=== PATIENT | female | born 1935 | race Caucasian/White ===

== ENCOUNTER 2017-11-25 18:36 | Emergency (ER) | payer MEDICARE, OTHER ==
[2017-11-25] MEDS ORDERED: Acetaminophen 500 MG TAB ONE (19:59)
--- NOTE | 2017-11-25 20:00 | RAD ---
FOUR VIEWS LEFT KNEE: 11/25/17 HISTORY: Patient tripped and fell. Posttraumatic pain. COMPARISON: None. FINDINGS: No joint effusion. Uncomplicated left knee arthroplasty. No fracture. IMPRESSION: No fracture. POS: [facility]
--- NOTE | 2017-11-25 20:09 | RAD ---
LEFT HAND THREE VIEW 11/25/17 HISTORY: Fall, injury. COMPARISON: None. FINDINGS: The bones are osteoporotic. This does limit evaluation for an acute fracture. There is concern for a fracture of the base of the small finger metacarpal only seen on the PA radio graph. This cannot be confirmed on another view. Moderate interphalangeal joint space narrowing. Dist al radius appears to be intact. IMPRESSION: Findings concerning for a small finger metacarpal base fracture although only seen on one view. Recom mend correlation with focal tenderness of the medial wrist. POS: [facility]
--- NOTE | 2017-11-25 21:16 | CT ---
CT BRAIN WITHOUT CONTRAST 11/25/17 HISTORY: Trauma. Fall. COMPARISON: None. FINDINGS: No acute hemorrhage or infarct. No midline shift. Or mass effect. Ventricular size and extra-axial CS F spaces are normal. Paranasal sinuses and mastoids are clear. IMPRESSION: No acute intracranial abnormality. POS: [facility]
== END 2017-11-25 20:39 | disposition home or self-care (01) ==
LOC: ERS 18:36
DX: S62.102A Fracture of unspecified carpal bone, left wrist, initial encounter for closed fracture (principal); S00.93XA Contusion of unspecified part of head, initial encounter; S80.212A Abrasion, left knee, initial encounter; I10 Essential (primary) hypertension; Z79.899 Other long term (current) drug therapy; W01.198A Fall on same level from slipping, tripping and stumbling with subsequent striking against other object, initial encounter; Y93.01 Activity, walking, marching and hiking
CPT/HCPCS: 29125; 70450

== ENCOUNTER 2020-11-16 14:59 | Outpatient (CLI) | payer MEDICARE, OTHER | END 2020-11-16 15:00 | disposition home or self-care (01) | LOC: HS RAD 14:59 | PROVIDERS: ATTEND Internal Medicine | DX: R60.0 Localized edema (principal) ==